=== PATIENT | male | born 1945 | race Caucasian/White ===

== ENCOUNTER → 2016-06-24 | Outpatient (CLI) | payer MEDICARE, OTHER ==
[~2016-06-24] MED LIST: ASPIRIN 32325 MG/TAB PO; ASPIRIN 81M81 MG/TA2 PO; CARDIZEM 60MG T60 MG PO; CELEBREX PO; DAYPRO 600600 MG PO; DIFLUCAN50 MG PO; FLOMAX 0.40.4 MG/CAP PO; FORTESTA10 MG/0.5 TP; KRILL OIL; LEVAQUIN 5500 MG/TA1 PO; METAXALL800 MG PO; MICARDIS HCT PO; MICARDIS80 MG PO; NORCO 325 MG-51 TAB PO; NORCO 325 MG-7.1 TAB PO; PLAVIX 75MG TAB75 MG PO; PRILOSEC 20MG20 MG PO; THERAPEUTIC VIT1 CAP PO; ULTRAM 50MG TAB50 MG PO; VOLTAREN 50MG T50 MG PO; XARELTO10 MG PO; ZOFRAN 4MG T4 MG/TAB PO; ZYLOPRIM 300MG300 MG PO; [UNRECOGNIZED DRUG - OTHER]; [UNRECOGNIZED DRUG - OTHER] PO
== END ==
LOC: COL.PUL 11:27
DX: I77.810 Thoracic aortic ectasia (principal); I51.89 Other ill-defined heart diseases

== ENCOUNTER → 2018-04-27 | Outpatient (CLI) | payer MEDICARE, OTHER | LOC: COL.RAD 11:00 | DX: K44.9 Diaphragmatic hernia without obstruction or gangrene (principal); K22.8 Other specified diseases of esophagus ==

== ENCOUNTER 2018-06-30 15:39 | Outpatient (RCR) | payer MEDICARE, OTHER | END 2018-07-14 07:29 | disposition home or self-care (01) | LOC: COL.CR 15:39 | DX: Z48.812 Encounter for surgical aftercare following surgery on the circulatory system (principal); Z95.5 Presence of coronary angioplasty implant and graft ==

== ENCOUNTER → 2020-01-09 | Outpatient (CLI) | payer MEDICARE, OTHER | LOC: COL.RAD 10:46 | DX: Z01.812 Encounter for preprocedural laboratory examination (principal); I65.21 Occlusion and stenosis of right carotid artery; I73.9 Peripheral vascular disease, unspecified ==

== ENCOUNTER → 2020-01-15 | Outpatient (CLI) | payer MEDICARE, OTHER ==
[~2020-01-15] VITALS: Ht 188 cm; Wt 102.5 kg
[~2020-01-15] MED LIST changes: +CELEBREX 200MG200 MG PO; +CRESTOR40 MG PO; +PHARMASSURE ZIN50 MG PO; +TOPROL XL 25MG25 MG PO; +ULORIC40 MG PO; +VITAMIND3 5000 PO
[2020-01-15 10:42] VITALS: BP 141/70; PULSE 63
[2020-01-15 12:20] VITALS: BP 175/81; PULSE 68
== END ==
LOC: COL.RAD 10:00
DX: M48.062 Spinal stenosis, lumbar region with neurogenic claudication (principal)
CPT/HCPCS: J3301

== ENCOUNTER → 2021-12-25 | Outpatient (CLI) | payer MEDICARE, OTHER | LOC: COL.RAD 13:23 | DX: M19.011 Primary osteoarthritis, right shoulder (principal); Z98.890 Other specified postprocedural states ==